=== PATIENT | female | born 1990 | race Caucasian/White ===

== ENCOUNTER 2017-12-25 05:51 | Inpatient (IN) | payer MEDICAID ==
--- NOTE | 2017-12-20 11:04 | MH ---
cc: Erica Sullivan MD DATE OF ADMISSION: 12/25/2017 HISTORY OF PRESENT ILLNESS: The patient is scheduled for a on 12/25/2017. She is 26 years old, 2, para 1-0-0-1, intrauterine at 39 weeks. care has been with [facility]. She is Rh negative, received RhoGAM, had a normal GCT and a negative group B strep, anterior placenta. PAST OBSTETRIC HISTORY: Significant for a in 2014 for arrest of dilatation. PAST GYNECOLOGIC HISTORY: She had a normal Pap smear in 06/2017. PAST MEDICAL HISTORY: She denies hypertension, diabetes, or asthma. PAST SURGICAL HISTORY: She has in 04/2015. SOCIAL HISTORY: She is a cigarette smoker, half a pack per day. Denies alcohol. Did have a positive urine drug screen for THC. MEDICATIONS: She takes vitamins. ALLERGIES: SHE HAS NO KNOWN DRUG ALLERGIES. PHYSICAL EXAMINATION: VITAL SIGNS: Stable. She is afebrile. Blood pressure is 120/80. She is 229 pounds. HEAD: Within normal limits. HEART: Within normal limits. CHEST: Within normal limits. LUNGS: Within normal limits. ABDOMEN: Soft, nontender, gravid. PELVIC: Closed and soft. EXTREMITIES: No edema, cyanosis or clubbing; nontender. ASSESSMENT AND PLAN: She is 26 years old, 2, para 1, intrauterine at 39 weeks, previous section, desires a repeat section. She has been counseled as to the risks, benefits and alternatives. All of her questions have been answered. MD BILL Nguyen/ALICIA , 10:41 AM , 11:03 AM
[2017-12-25] VITALS (11 sets, daily range): BP systolic 112–151; BP diastolic 51–96; PULSE 68–95; RESP 17–20; TEMP 97.7–98.4; O2SAT 97–98
[~2017-12-25] VITALS: Ht 149.9 cm; Wt 103.4 kg
[~2017-12-25 05:51] MED LIST: IBUP600 PO; OXYC1SOL5 PO
[2017-12-25] MEDS ORDERED: CITRIC ACID-SODIUM CITRATE LIQ 30 ML UDC PO SCH (06:15)
[2017-12-25] MEDS ORDERED: ceFAZolin 2 GM PREMIX 50 ML IV SCH (06:15)
[2017-12-25] MEDS ORDERED: LACTATED RINGER'S 1000 ML IV SCH (06:15)
[2017-12-25] MEDS ORDERED: LACTATED RINGER'S 1000 ML IV ONE (06:15)
[2017-12-25 06:53] LABS: AUTOMATED NEUTROPHIL # 6.4 TH/MM3 (1.8-7.7); BASOPHIL % 0.3 % (0.0-2.0); EOSINOPHIL % 0.5 % (0.0-4.0); HEMATOCRIT 38.5 % (35.0-46.0); HEMOGLOBIN 13.8 GM/DL (11.6-15.3); LYMPH % 24.3 % (9.0-44.0); LYMPHOCYTE # 2.2 TH/MM3 (1.0-4.8); MEAN CELL VOLUME 86.5 FL (80.0-100.0); MEAN CORPUSCULAR HEMOGLOBIN 30.9 PG (27.0-34.0); MEAN CORPUSCULAR HGB CONC 35.7 % (32.0-36.0); MEAN PLATELET VOLUME 9.2 FL (7.0-11.0); MONOCYTE # 0.5 TH/MM3 (0-0.9); NEUT % 69.9 % (16.0-70.0); PLATELET COUNT 204 TH/MM3 (150-450); RED BLOOD COUNT 4.46 MIL/MM3 (4.00-5.30); RED CELL DISTRIBUTION WIDTH 13.7 % (11.6-17.2); WHITE BLOOD COUNT 9.1 TH/MM3 (4.0-11.0)
[2017-12-25] MEDS ORDERED: ACETAMINOPHEN 1000 MG/100 ML 100 ML IV ONE (07:05)
[2017-12-25] MEDS ORDERED: MORPHINE SULFATE PF 5 MG/10 ML VIAL ONE (07:05)
[2017-12-25 07:06] LABS: ALBUMIN 2.6 GM/DL (3.4-5.0); ALT (GPT) 20 U/L (10-53); AST (GOT) 13 U/L (15-37); BICARBONATE 20.3 MEQ/L (21.0-32.0); BLOOD UREA NITROGEN 8 MG/DL (7-18); CALCIUM 8.6 MG/DL (8.5-10.1); CHLORIDE 107 MEQ/L (98-107); CREATININE 0.52 MG/DL (0.50-1.00); GLOMERULAR FILTRATION RATE 141 ML/MIN (>89); GLUCOSE,RANDOM 94 MG/DL (74-106); SODIUM (NA) 140 MEQ/L (136-145)
[2017-12-25 07:09] LABS: ALKALINE PHOSPHATASE 187 U/L (45-117); TOTAL BILIRUBIN ADULT 0.3 MG/DL (0.2-1.0)
[2017-12-25 07:26] LABS: BACTERIA, URINE OCC /hpf; BILIRUBIN, URINE NEG (NEG); BLOOD, URINE NEG (NEG); GLUCOSE,URINE NEG (NEG); KETONE, URINE TRACE mg/dL (NEG); MUCUS URINE FEW /lpf (OCC); NITRITE,URINE NEG (NEG); PH, URINE 6.5 (5.0-8.5); SQUAMOUS EPITHELIAL CELL URINE 11 /hpf (0-5); URINE COLOR YELLOW (YELLW/STRAW); URINE LEUKOCYTE ESTERASE TRACE (NEG)
[2017-12-25] MEDS ORDERED: EPIDURAL-NO SYSTEMIC NARCOTICS PRN (07:50)
[2017-12-25] MEDS ORDERED: EPIDURAL-DIPHENHYDRAMINE HCL 50 MG/ML VIAL IV PUSH PRN (07:50)
[2017-12-25] MEDS ORDERED: EPIDURAL-DO NOT ADMINISTER ANTICOAGULANTS PRN (07:50)
[2017-12-25] MEDS ORDERED: EPIDURAL-NALOXONE HCL 0.4 MG/ML AMP IV PUSH PRN (07:50)
[2017-12-25] MEDS ORDERED: KETOROLAC TROMETHAMINE 60 MG/2 ML (IM) VIAL IM PRN (08:45)
[2017-12-25] MEDS ORDERED: SIMETHICONE 80 MG CHEWABLE TAB PO PRN (08:45)
[2017-12-25] MEDS ORDERED: SODIUM CHLORIDE 0.9% FLUSH 10 ML FLUSH IV FLUSH PRN (08:45)
[2017-12-25] MEDS ORDERED: OXYTOCIN 30 UNITS-500ML PREMIX 500 ML IV ONE (08:45)
[2017-12-25] MEDS ORDERED: ZOLPIDEM TARTRATE 5 MG TAB PO PRN (08:45)
[2017-12-25] MEDS ORDERED: ONDANSETRON ODT 4 MG TAB PO PRN (08:45)
[2017-12-25] MEDS: SODIUM CHLORIDE 0.9% FLUSH 10 ML FLUSH IV FLUSH SCH (09:00)
--- NOTE | 2017-12-25 09:39 | MP ---
cc: Erica Sullivan MD DATE OF OPERATION: 12/25/2017 PREOPERATIVE DIAGNOSES: 1. Intrauterine at 39 weeks. 2. Previous section, declines trial of labor. POSTOPERATIVE DIAGNOSES: 1. Intrauterine at 39 weeks. 2. Previous section, declines trial of labor. PROCEDURE PERFORMED: Repeat lower segment transverse section via Pfannenstiel skin incision. SURGEON: Erica Sullivan MD ANESTHESIA: Spinal. FLUIDS: 100 mL crystalloids. ESTIMATED BLOOD LOSS: 350 mL. URINE OUTPUT: 100 mL clear yellow at the end of the procedure. FINDINGS: A live male was delivered vertex presentation, Apgars 9 at 1 minute and 9 at 5 minutes. weight was 5 pounds 5 ounces. PROCEDURE: The patient was taken to the OR where spinal anesthesia was found to be adequate. She was prepped and draped in the normal sterile fashion in the dorsal supine position with a leftward tilt. A Pfannenstiel skin incision was made with a scalpel and carried down to the underlying layer of fascia. The fascia was nicked in the midline and the incision was extended laterally with curved Huang scissors. Attention was turned to the inferior aspect of the incision, which was grasped with Ebony clamps, elevated, and the rectus muscles dissected off sharply. Attention was turned to the superior aspect of the incision, which was grasped with Ebony clamps, elevated, and the rectus muscles dissected off sharply. The rectus muscles were in the midline. The peritoneum was identified, grasped between two Jessica clamps, elevated, and entered sharply with Metzenbaum scissors. This incision was extended superiorly and inferiorly with good visualization of the bladder. The bladder blade was inserted. The vesicouterine peritoneum was identified, grasped with pickups and entered sharply with Metzenbaum scissors. This incision was extended laterally and the bladder flap created sharply. The lower uterine segment was incised in a transverse fashion with the scalpel. This incision was extended laterally with bandage scissors. The vertex was then delivered. The shoulders were delivered atraumatically. The oropharynx and nasopharynx were bulb suctioned with the syringe. The cord was clamped x 2 and cut after waiting 45 seconds. The was handed off to the awaiting nurse. The placenta was delivered manually and sent for donation. The uterus was cleared of all clots and debris. The uterine incision was repaired in 2 layers with #1 Vicryl. Hemostasis was assured. The gutters were cleared of all clot and debris. The fascia incision was repaired in a running fashion with 0 Vicryl, 2 sutures of 0 chromic were used to close the subcutaneous tissue. The skin was closed with ashia. A pressure dressing was applied. The sponge, lap, needle and instrument counts were correct x 3. The patient was transferred to the recovery room in stable condition. MD BILL Nguyen/ASHLEIGH , 09:23 AM , 09:38 AM
[2017-12-25] MEDS ORDERED: LIDOCAINE 2%/EPINEPHrine PF 1:200,000 20ML SDV OTHER ONE (12:00)
[2017-12-25] MEDS ORDERED: ePHEDrine/NS 25 MG/5 ML SYRINGE IV ONE (12:00)
[2017-12-25] MEDS ORDERED: PHENYLEPH/NS 1000 MCG/10 ML SYR IV ONE (12:00)
[2017-12-25] MEDS ORDERED: ceFAZolin INJ 1,000 MG VIAL IV ONE (12:00)
[2017-12-25] MEDS ORDERED: DEXAMETHASONE SOD PHOS 4 MG/ML VIAL IV ONE (12:00)
[2017-12-25] MEDS ORDERED: ONDANSETRON HCL 4 MG/2 ML VIAL IV ONE (12:00)
[2017-12-25] MEDS ORDERED: OXYTOCIN 10 UNIT/ML AMP IV ONE (12:00)
[2017-12-25] MEDS ORDERED: LACTATED RINGER'S 1000 ML INJ 1,000 ML IV SCH (13:38)
[2017-12-25] MEDS ORDERED: OXYTOCIN 30 UNITS-500ML PREMIX 500 ML IV PRN (13:45)
[2017-12-25] MEDS: EPIDURAL-DIPHENHYDRAMINE HCL 50 MG CAP PO PRN ×2 (16:03→21:24)
[2017-12-25] MEDS: oxyCODONE/ACETAMINOPHEN 5 MG/325 MG TAB PO PRN ×2 (16:03→21:23)
[2017-12-25 17:42] LABS: AUTOMATED NEUTROPHIL # 11.4 TH/MM3 (1.8-7.7); BASOPHIL # 0.1 TH/MM3 (0-0.2); BASOPHIL % 0.4 % (0.0-2.0); EOSINOPHIL % 0.1 % (0.0-4.0); HEMATOCRIT 37.2 % (35.0-46.0); LYMPHOCYTE # 1.5 TH/MM3 (1.0-4.8); MEAN CELL VOLUME 87.3 FL (80.0-100.0); MEAN CORPUSCULAR HEMOGLOBIN 30.5 PG (27.0-34.0); MEAN CORPUSCULAR HGB CONC 34.9 % (32.0-36.0); MEAN PLATELET VOLUME 9.2 FL (7.0-11.0); MONO % 2.6 % (0.0-8.0); MONOCYTE # 0.3 TH/MM3 (0-0.9); NEUT % 85.9 % (16.0-70.0); PLATELET COUNT 184 TH/MM3 (150-450); RED BLOOD COUNT 4.26 MIL/MM3 (4.00-5.30); RED CELL DISTRIBUTION WIDTH 13.7 % (11.6-17.2); WHITE BLOOD COUNT 13.2 TH/MM3 (4.0-11.0)
[2017-12-25 18:01] LABS: ALBUMIN 2.5 GM/DL (3.4-5.0); ALKALINE PHOSPHATASE 171 U/L (45-117); ALT (GPT) 18 U/L (10-53); AST (GOT) 18 U/L (15-37); BICARBONATE 24.7 MEQ/L (21.0-32.0); BLOOD UREA NITROGEN 8 MG/DL (7-18); CALCIUM 8.4 MG/DL (8.5-10.1); CHLORIDE 106 MEQ/L (98-107); CREATININE 0.61 MG/DL (0.50-1.00); GLOMERULAR FILTRATION RATE 118 ML/MIN (>89); GLUCOSE,RANDOM 114 MG/DL (74-106); SODIUM (NA) 140 MEQ/L (136-145); TOTAL BILIRUBIN ADULT 0.3 MG/DL (0.2-1.0); TOTAL PROTEIN 6.8 GM/DL (6.4-8.2)
[2017-12-25] MEDS: IBUPROFEN 600 MG TAB PO PRN (21:23)
[2017-12-26] MEDS: oxyCODONE/ACETAMINOPHEN 5 MG/325 MG TAB PO PRN ×4 (03:49→21:34)
[2017-12-26] MEDS: IBUPROFEN 600 MG TAB PO PRN ×3 (03:49→16:49)
[2017-12-26 04:00] VITALS: BP 148/89; PULSE 79; RESP 18; TEMP 98.6; O2SAT 95
[2017-12-26 06:08] LABS: AUTOMATED NEUTROPHIL # 7.6 TH/MM3 (1.8-7.7); BASOPHIL % 0.1 % (0.0-2.0); EOSINOPHIL % 0.4 % (0.0-4.0); HEMATOCRIT 32.7 % (35.0-46.0); HEMOGLOBIN 11.6 GM/DL (11.6-15.3); LYMPH % 26.4 % (9.0-44.0); LYMPHOCYTE # 2.9 TH/MM3 (1.0-4.8); MEAN CELL VOLUME 86.1 FL (80.0-100.0); MEAN CORPUSCULAR HEMOGLOBIN 30.6 PG (27.0-34.0); MEAN CORPUSCULAR HGB CONC 35.6 % (32.0-36.0); MEAN PLATELET VOLUME 9.1 FL (7.0-11.0); MONO % 4.6 % (0.0-8.0); MONOCYTE # 0.5 TH/MM3 (0-0.9); NEUT % 68.5 % (16.0-70.0); PLATELET COUNT 171 TH/MM3 (150-450); RED CELL DISTRIBUTION WIDTH 13.6 % (11.6-17.2); WHITE BLOOD COUNT 11.2 TH/MM3 (4.0-11.0)
[2017-12-26 06:13] LABS: ALBUMIN 2.3 GM/DL (3.4-5.0); ALKALINE PHOSPHATASE 151 U/L (45-117); ALT (GPT) 19 U/L (10-53); AST (GOT) 21 U/L (15-37); BICARBONATE 23.8 MEQ/L (21.0-32.0); BLOOD UREA NITROGEN 9 MG/DL (7-18); CALCIUM 8.4 MG/DL (8.5-10.1); CHLORIDE 106 MEQ/L (98-107); CREATININE 0.63 MG/DL (0.50-1.00); GLOMERULAR FILTRATION RATE 113 ML/MIN (>89); GLUCOSE,RANDOM 91 MG/DL (74-106); SODIUM (NA) 141 MEQ/L (136-145); TOTAL BILIRUBIN ADULT 0.2 MG/DL (0.2-1.0); TOTAL PROTEIN 6.3 GM/DL (6.4-8.2)
[2017-12-26 08:00] VITALS: BP 138/92; PULSE 101; RESP 20; TEMP 98.3; O2SAT 99
[2017-12-26] MEDS: SODIUM CHLORIDE 0.9% FLUSH 10 ML FLUSH IV FLUSH SCH (08:07)
[2017-12-26] MEDS ORDERED: diphenhydrAMINE HCL 25 MG CAP PO PRN (09:30)
[2017-12-26 12:00] VITALS: BP 140/91; PULSE 90; RESP 20; TEMP 97.8; O2SAT 99
--- NOTE | 2017-12-26 13:52 | HHI.OB ---
Subjective Post Operative Day: 1 Remarks doing well, ambulating, cheli po, voiding w/o difficulty. Objective Result Diagram: 12/26/17 0530 12/26/17 0530 Objective Remarks GENERAL: Well-nourished, well-developed patient. CARDIOVASCULAR: Regular rate and rhythm without murmurs, gallops, or rubs. RESPIRATORY: Breath sounds equal bilaterally. No accessory muscle use. ABDOMEN/GI: Abdomen soft, non-tender, bowel sounds present. Incision: Pressure dressing removed which was saturated. Incision w ashia in place, Clean, dry and intact. Fundus: Firm, non-tender at umbilicus. GENITOURINARY: Light to moderate bleeding. EXTREMITIES: No cyanosis or edema, non-tender, without signs of DVT. Medications and IVs Current Medications Medications (Trade) Dose Ordered Sig/Uzair Route Start Time Stop Time Status Last Admin (NS Flush) 2 ml BID IV FLUSH 12/25/17 09:00 (NS Flush) 2 ml UNSCH PRN IV FLUSH 12/25/17 08:45 (Mylicon Chew) 80 mg QID PRN PO 12/25/17 08:45 (Motrin) 600 mg Q6H PRN PO 12/25/17 08:45 12/26/17 10:15 (Percocet 5-325 Mg) 1 tab Q4H PRN PO 12/25/17 08:45 12/26/17 08:06 (Percocet 5-325 Mg) 2 tab Q4H PRN PO 12/25/17 08:45 (Jenny-Colace) 2 tab Q12H PRN PO 12/25/17 08:45 (Ambien) 5 mg HS PRN PO 12/25/17 08:45 (M-M-R Ii Inj) 0.5 ml ONCE ONCE SQ 12/26/17 16:00 12/26/17 16:01 (Boostrix Inj) 0.5 ml ONCE ONCE IM 12/26/17 16:00 12/26/17 16:01 (Zofran Odt) 4 mg Q6H PRN PO 12/25/17 08:45 12/25/17 15:24 (Benadryl) 25 mg Q6H PRN PO 12/26/17 09:30 Assessment/Plan Problem List: (1) Status post repeat low transverse section ICD Codes: Z98.891 - History of uterine scar from previous surgery Assessment and Plan POD 1 rcd - doing well postoperatively, may want to go home tomorrow - She has had mild range bp, nl pih labs but + proteinuria. No headaches, blurry vision or scotomas. No ruq pain. No indication for need for magnesium therapy. Mild pre-e Karlee Billingsley MD Dec 26, 2017 13:52
[2017-12-26] MEDS ORDERED: DIPHTH/TETANUS/ACEL PERTUSSIS (BOOSTER) 0.5 ML VIAL/PFS IM ONE (16:00)
[2017-12-26] MEDS ORDERED: MEASLES, MUMPS, RUBELLA VACCINE 0.5 ML VIAL SQ ONE (16:00)
[2017-12-26 20:45] VITALS: BP 152/73; PULSE 82; RESP 17; TEMP 97.9
[2017-12-26] MEDS: DOCUSATE SODIUM 50 MG/SENNA 8.6 MG TAB PO PRN (21:33)
[2017-12-27] MEDS: IBUPROFEN 600 MG TAB PO PRN ×2 (03:52→11:04)
[2017-12-27] MEDS: oxyCODONE/ACETAMINOPHEN 5 MG/325 MG TAB PO PRN ×2 (03:52→08:53)
[2017-12-27] MEDS: DOCUSATE SODIUM 50 MG/SENNA 8.6 MG TAB PO PRN (08:52)
--- NOTE | 2017-12-27 10:11 | HHI.DS ---
Admission Date Dec 25, 2017 at 05:51 Admitting Diagnosis Diagnosis: : Repeat : Male Pt Condition on Discharge: Good Discharge Disposition: Discharge Home Discharge Instructions Diet Instructions: As Tolerated, No Restrictions Activities You Can Perform: Shower Only-No Bath Activities to Avoid: Prolonged Standing, Strenuous Activity, Driving, Sexual Activity Chris Caldwell MD Dec 27, 2017 10:11
[2017-12-27] MEDS ORDERED: IBUP-232 PO (10:14)
[2017-12-27] MEDS ORDERED: OXYC1TAB63 PO (10:14)
--- NOTE | 2017-12-27 10:19 | HHI.OB ---
Subjective Post Operative Day: 2 Remarks POD#2; Stable, desires discharge to home Objective Vitals/I&O Vital Signs Date Time Temp Pulse Resp B/P (MAP) Pulse Ox O2 Delivery O2 Flow Rate FiO2 12/26/17 20:45 97.9 82 17 152/73 (99) Result Diagram: 12/26/1752912/26/17 05 Objective Remarks GENERAL: Well-nourished, well-developed patient. CARDIOVASCULAR: Regular rate and rhythm without murmurs, gallops, or rubs. RESPIRATORY: Breath sounds equal bilaterally. No accessory muscle use. ABDOMEN/GI: Abdomen soft, non-tender, bowel sounds present. Incision: Pressure dressing removed which was saturated. Incision w ashia in place, Clean, dry and intact. Fundus: Firm, non-tender at umbilicus. GENITOURINARY: Light to moderate bleeding. EXTREMITIES: No cyanosis or edema, non-tender, without signs of DVT. Medications and IVs Current Medications Medications (Trade) Dose Ordered Sig/Uzair Route Start Time Stop Time Status Last Admin (NS Flush) 2 ml BID IV FLUSH 12/25/17 09:00 (NS Flush) 2 ml UNSCH PRN IV FLUSH 12/25/17 08:45 (Mylicon Chew) 80 mg QID PRN PO 12/25/17 08:45 12/27/17 08:52 (Motrin) 600 mg Q6H PRN PO 12/25/17 08:45 12/27/17 03:52 (Percocet 5-325 Mg) 1 tab Q4H PRN PO 12/25/17 08:45 12/27/17 08:53 (Percocet 5-325 Mg) 2 tab Q4H PRN PO 12/25/17 08:45 12/27/17 03:52 (Jenny-Colace) 2 tab Q12H PRN PO 12/25/17 08:45 12/27/17 08:52 (Ambien) 5 mg HS PRN PO 12/25/17 08:45 (Zofran Odt) 4 mg Q6H PRN PO 12/25/17 08:45 12/25/17 15:24 (Benadryl) 25 mg Q6H PRN PO 12/26/17 09:30 Assessment/Plan Problem List: (1) Status post repeat low transverse section ICD Codes: Z98.891 - History of uterine scar from previous surgery Assessment and Plan POD 1 rcd - doing well postoperatively, may want to go home tomorrow - She has had mild range bp, nl pih labs but + proteinuria. No headaches, blurry vision or scotomas. No ruq pain. No indication for need for magnesium therapy. Mild pre-e POD#2; Stable BP range stable; plan discharge to home today and will call office to arrange staple removal in 1-2 DAYS. Discharge Planning TODAY Attending Attestation SEEN BY Chris Goldberg MD Dec 27, 2017 10:19
== END 2017-12-27 13:13 | disposition home or self-care (01) | DRG 765 ==
LOC: H2EB 05:51 → H1EA 09:50
PROVIDERS: ADMIT Obstetrics & Gynecology; ATTEND Obstetrics & Gynecology
PROC: 10D00Z1 Extraction of Products of Conception, Low, Open Approach (ICD-10-PCS; principal; 2017-12-25)
DX: O34.219 Maternal care for unspecified type scar from previous cesarean delivery (principal); O99.324 Drug use complicating childbirth; O99.334 Smoking (tobacco) complicating childbirth; F17.210 Nicotine dependence, cigarettes, uncomplicated; O26.893 Other specified pregnancy related conditions, third trimester; F12.90 Cannabis use, unspecified, uncomplicated; Z67.91 Unspecified blood type, Rh negative; Z37.0 Single live birth; Z3A.39 39 weeks gestation of pregnancy
CPT/HCPCS: 59025; 80053; 80307; 81001; 82570; 84156; 84550; 85025; 86850; 86900; 86901; J0131; J0690; J1100; J1885; J2274; J2370; J2405; J2590; J7120; Q0163